=== PATIENT | male | born 1955 | race Caucasian/White ===

== ENCOUNTER → 2017-04-18 | Outpatient (CLI) | payer OTHER ==
--- NOTE | 2017-04-18 08:35 | KCIC ---
Limited abdominal ultrasound dated 04/18/2017 8:00 AM. Comparison: None Clinical Indication: Right upper quadrant pain abdominal pain Findings: The liver is mild diffuse increased echogenicity with no evidence of focal hepatic mass. Intrahepatic and extra hepatic biliary ducts are normal in caliber. The common bile duct measures 3 mm. Echogenic shadowing foci within the gallbladder lumen with focus lodged at the gallbladder neck. Borderline gallbladder wall thickening measuring 3.4 mm. Trace amount of pericholecystic fluid. Right kidney measures 10.7 cm in length without hydronephrosis. Left kidney was not imaged. Pancreas, aorta and IVC are not well evaluated due to overlying bowel gas. No significant ascites.. IMPRESSION: 1. Cholelithiasis with mild gallbladder wall thickening. Acute cholecystitis cannot be excluded. 2. Mild fatty infiltration of the liver. Electronically signed by: Rashel Colin MD (04/18/2017 8:32 AM)
== END | disposition home or self-care (01) ==
LOC: KCIC US 07:46
PROVIDERS: ATTEND Physician Assistant Medical
DX: K80.20 Calculus of gallbladder without cholecystitis without obstruction (principal); K76.0 Fatty (change of) liver, not elsewhere classified
CPT/HCPCS: 76705

== ENCOUNTER → 2017-07-23 | Outpatient (CLI) | payer OTHER ==
--- NOTE | 2017-07-23 15:52 | KCIC ---
CT CHEST WO CONTRAST dated 07/23/2017 3:30 PM Indication: COPD, shortness of air on exertion, cough, previous smoker of 50 years Comparison: None. Technique: Noncontrast CT imaging was performed of the[chest], multiplanar reconstruction images submitted. One or more of the following individualized dose reduction techniques were utilized for this examination: 1. Automated exposure control 2. Adjustment of the mA and/or kV according to patient size 3. Use of iterative reconstruction technique. Findings: There are some calcified nodules of the left upper and left lower lobe. There is no infiltrate, pleural or pericardial effusion, pneumothorax. There is mild fibrotic change near the apices bilaterally. Major airways are patent. There are some calcified mediastinal nodes. Ascending thoracic aorta is somewhat ectatic up to 3.8 cm. There is no abnormality of the thyroid IMPRESSION: 1. There are findings of old granulomatous disease. There is mild centrilobular emphysema. 2. There is ectatic ascending thoracic aorta up to 3.8 cm. 3. There is mild coronary calcification. 4. There is cholelithiasis. Electronically signed by: Oni Chow MD (07/23/2017 3:49 PM) [id number]
== END | disposition home or self-care (01) ==
LOC: KCIC CT 15:05
PROVIDERS: ATTEND Physician Assistant Medical
DX: J43.2 Centrilobular emphysema (principal); D71 Functional disorders of polymorphonuclear neutrophils; I77.810 Thoracic aortic ectasia; I25.10 Atherosclerotic heart disease of native coronary artery without angina pectoris; K80.20 Calculus of gallbladder without cholecystitis without obstruction
CPT/HCPCS: 71250

== ENCOUNTER → 2021-08-08 | Outpatient (CLI) | payer MEDICARE, OTHER ==
--- NOTE | 2021-08-08 15:29 | KCIC ---
EXAM: CT coronary artery calcium screening; radiologist over read. HISTORY: Coronary artery calcium screening. Family history of heart disease. TECHNIQUE: Computed tomographic images of the chest were obtained without contrast. Multiplanar refor matting was performed. *One or more of the following individualized dose reduction techniques were utilized for this examina tion: 1. Automated exposure control. 2. Adjustment of the mA and/or kV according to patient size. 3. Use of iterative reconstruction technique. COMPARISON: Chest CT dated 07/23/2017. FINDINGS: The heart is normal in size. The ascending aorta is mildly dilated to a caliber of 3.9 cm. There is calcified atherosclerotic plaque involving the coronary arteries. There are calcified medias tinal and left hilar and lower lobe granulomas. There is no infiltrate, pleural effusion or pneumotho rax. There is a stable right cardiophrenic angle lymph node measuring 1.1 cm. There is no acute findi ng involving the upper abdomen. There is no acute finding involving the osseous structures. Coronary artery calcium score: Left main artery - 0 Left anterior descending - 31.7 Left circumflex - 51.5 Right coronary artery - 78.5 Posterior descending artery - 0 TOTAL = 161.7 IMPRESSION: 1. Coronary artery calcium score of 161.7. There is moderate calcified atherosclerotic plaque. 2. Stable mild dilatation of the ascending aorta to a caliber of 3.9 cm. 3. No acute thoracic finding. Electronically signed by: Lina Garcia MD (08/08/2021 3:26 PM) [id number]
== END ==
LOC: KCIC CT 14:25
PROVIDERS: ATTEND Physician Assistant Medical
DX: Z13.6 Encounter for screening for cardiovascular disorders (principal); I25.10 Atherosclerotic heart disease of native coronary artery without angina pectoris; J84.10 Pulmonary fibrosis, unspecified
CPT/HCPCS: 75571